=== PATIENT | female | born 2000 | race Caucasian/White ===

== ENCOUNTER 2023-11-13 23:41 | Emergency (ER) | payer OTHER ==
[~2023-11-13] VITALS: Ht 162.6 cm; Wt 60.0 kg
[2023-11-13 23:48] VITALS: BP 108/73; PULSE 86; RESP 14; TEMP 97.9; O2SAT 100
[2023-11-14 01:10] LABS: CHLORIDE 109 mEq/L (98-107); POTASSIUM 4.4 mEq/L (3.5-5.1); SODIUM 140 mEq/L (136-145)
[2023-11-14 01:11] LABS: CARBON DIOXIDE 22 mEq/L (21-32)
[2023-11-14 01:17] LABS: CREATININE 0.7 mg/dL (0.6-1.0); ETHANOL BLOOD 140 mg/dL (<10); GLUCOSE 106 mg/dL (70-105); UREA NITROGEN BLOOD 10 mg/dL (9-23)
[2023-11-14 01:18] LABS: ACETAMINOPHEN < 2 ug/mL (10-30)
[2023-11-14 01:21] LABS: BASOPHILS % 0.2 % (0.0-2.0); EOSINOPHILS % 0.2 % (0.0-5.0); HEMATOCRIT. 39.2 % (36.0-48.0); HEMOGLOBIN. 12.4 g/dL (12.0-16.0); LYMPHOCYTES % 7.1 % (20.0-50.0); MEAN CORPUSCULAR HEMOGLOBIN 26.3 pg (28.0-32.0); MEAN CORPUSCULAR HGB CONC 31.6 g/dL (31.0-37.0); MEAN CORPUSCULAR VOLUME 83.2 fL (81.0-99.0); MEAN PLATELET VOLUME 8.4 fl (7.4-10.4); MONOCYTES % 4.1 % (2.0-8.0); NEUTROPHILS % 88.4 % (40.0-76.0); PLATELET 284 x1000/uL (130-400); RED BLOOD CELL COUNT 4.71 mill/uL (4.2-5.4); RED CELL DISTRIBUTION WIDTH 14.8 % (11.6-14.6); WHITE BLOOD COUNT 17.4 x1000/uL (4.5-11.0)
[2023-11-14 01:59] LABS: HCG SCREEN NEGATIVE
[2023-11-14 03:23] LABS: CLARITY URINE CLEAR (CLEAR); COLOR URINE YELLOW (YELLOW); GLUCOSE URINE NEGATIVE (NEGATIVE); KETONES URINE 1+ (NEGATIVE); LEUKOCYTE ESTERASE URINE 2+ (NEGATIVE); NITRITE URINE NEGATIVE (NEGATIVE); OCCULT BLOOD URINE NEGATIVE (NEGATIVE); PH URINE 5.5 (4.5-8.0); PROTEIN URINE NEGATIVE (NEGATIVE); SPECIFIC GRAVITY URINE 1.018 (1.005-1.030); UROBILINOGEN URINE 0.2 E.U./dL (0.2-1.0)
[2023-11-14 03:31] LABS: *AMPHETAMINES SCREEN URINE NEGATIVE (NEGATIVE); *BARBITURATES SCREEN URINE NEGATIVE (NEGATIVE); *BENZODIAZEPINES SCREEN URINE NEGATIVE (NEGATIVE); *COCAINE SCREEN URINE NEGATIVE (NEGATIVE); CANNABINOID URINE SCREEN NEGATIVE (NEGATIVE); ECSTASY MDMA SCREEN URINE NEGATIVE (NEGATIVE); METHADONE URINE SCREEN NEGATIVE (NEGATIVE); OPIATES URINE SCREEN NEGATIVE (NEGATIVE); PHENCYCLIDINE URINE SCREEN NEGATIVE (NEGATIVE)
[2023-11-14 04:52] LABS: SQUAMOUS EPITHELIAL CELL URINE FEW /lpf (RARE/1+)
[2023-11-14 04:54] LABS: RBC URINE 0-2 /hpf (0-2)
[2023-11-14 04:55] LABS: BACTERIA URINE 1+
== END 2023-11-14 03:27 | disposition home or self-care (01) ==
LOC: ER 23:41
DX: F10.129 Alcohol abuse with intoxication, unspecified (principal); J45.909 Unspecified asthma, uncomplicated; Y90.6 Blood alcohol level of 120-199 mg/100 ml
CPT/HCPCS: 36415; 80048; 80305; 80307; 80320; 80329; 81003; 84703; 85025; 99283; G0480